=== PATIENT | female | born 1990 | race African-American/Black ===

== ENCOUNTER 2022-09-27 09:50 | Inpatient (IN) | payer MEDICAID ==
[~2022-09-27] VITALS: Ht 165.1 cm; Wt 90.7 kg
[2022-09-27] MEDS ORDERED: NALBUPHINE 10 MG/ML AMP IVP PRN (10:15)
[2022-09-27] MEDS ORDERED: METHYLERGONOVINE 0.2 MG/ML AMP IM PRN (10:15)
[2022-09-27] MEDS ORDERED: LACTATED RINGERS 500 ML IV SCH (10:15)
[2022-09-27] MEDS ORDERED: OXYTOCIN 10 UNITS/ML VIAL IM SCH (10:15)
[2022-09-27] MEDS ORDERED: CARBOPROST 250 MCG/ML AMP IM PRN (10:15)
[2022-09-27] MEDS ORDERED: PREN-543 PO (10:26)
[2022-09-27 10:38] LABS: APPEARANCE,URINE CLEAR (CLEAR); BILIRUBIN,URINE NEGATIVE (NEGATIVE); BLOOD, URINE TRACE-I (NEGATIVE); COLOR,URINE YELLOW (YELLOW); LEUKOCYTE ESTERASE ,URINE NEGATIVE (NEGATIVE); NITRITE, URINE NEGATIVE (NEGATIVE); PH,URINE 6.5 (5.0-9.0); PROTEIN,URINE TRACE (NEGATIVE); UGLUCOSE NEGATIVE (NEGATIVE); UROBILINOGEN,URINE 0.2 EU/dL (0.2 - 1)
[2022-09-27 10:41] LABS: BASOPHILS % (AUTO) 0.4 % (0.0-2.0); EOSINOPHILS # (AUTO) 0.1 K/uL (0-0.4); EOSINOPHILS % (AUTO) 2.8 % (0.0-4.0); HEMATOCRIT 30.7 % (36-48); HEMOGLOBIN 9.6 g/dL (12.0-16.0); LYMPHOCYTES # (AUTO) 1.1 K/uL (2.5-16.5); LYMPHOCYTES % (AUTO) 28.5 % (20.5-51.1); MEAN CORPUSCULAR HEMOGLOBIN 21 pg (27-31); MEAN CORPUSCULAR HGB CONC 31 g/dL (33-37); MONOCYTES # (AUTO) 0.3 K/uL (0.8-1.0); MONOCYTES % (AUTO) 8.5 % (1.7-9.3); NEUTROPHILS # (AUTO) 2.2 K/uL (1.8-7.7); NEUTROPHILS % (AUTO) 59.8 % (42.2-75.2); PLATELET COUNT (AUTO) 226 K/uL (140-450); RED BLOOD CELL COUNT(AUTO) 4.65 MIL/uL (4.20-5.40); WHITE BLOOD COUNT (AUTO) 3.8 K/uL (4.8-10.8)
[2022-09-27 10:50] LABS: ALBUMIN 2.4 g/dL (3.4-5.0); ANION GAP 12.8 (8-16); CALCIUM 8.1 mg/dL (8.5-10.1); CARBON DIOXIDE 24.6 mmol/L (21-32); CREATININE 0.6 mg/dL (0.6-1.3); INR 0.9 (0.8-1.2); PARTIAL THROMBOPLASTIN TIME 29.5 secs (22-35.6); POTASSIUM 3.4 mmol/L (3.5-5.1); PROTHROMBIN TIME 9.5 secs (10.8-13.4); TOTAL BILIRUBIN 0.2 mg/dL (0.0-1.0)
[2022-09-27] MEDS: LACTATED RINGERS 1,000 ML IV SCH ×2 (10:59→18:04)
[2022-09-27 11:29] VITALS: BP 126/70; PULSE 80; RESP 18; TEMP 98.7
[2022-09-27] MEDS ORDERED: MISOPROSTOL 25 MCG TAB VG SCH (12:00)
[2022-09-27] MEDS ORDERED: OXYTOCIN 20 UNITS in LACTATED RINGERS 1,000 ML IV SCH (16:50)
[2022-09-28] MEDS: LACTATED RINGERS 1,000 ML IV SCH ×2 (02:22→14:39)
[2022-09-28] MEDS ORDERED: OXYTOCIN 20 UNITS/LR PREMIX 1,000 ML IV ONE (07:36)
[2022-09-28] MEDS ORDERED: fentaNYL citrate 0.05 MG/ML VIAL ONE (10:19)
[2022-09-28] MEDS ORDERED: ROPIVACAINE 0.2%/NS PREMIX 200 ML EPI ONE (10:19)
[2022-09-28] MEDS ORDERED: TEMAZEPAM 15 MG CAP PO PRN (17:40)
[2022-09-28] MEDS ORDERED: BENZOCAINE/MENTHOL 20%-0.5% 60 GM CAN TP PRN (17:40)
[2022-09-28] MEDS ORDERED: IBUPROFEN 800 MG TAB PO PRN (17:40)
[2022-09-28] MEDS ORDERED: OXYTOCIN 10 UNITS/ML VIAL IM PRN (17:40)
[2022-09-28] MEDS ORDERED: METHYLERGONOVINE 0.2 MG TAB PO PRN (17:40)
[2022-09-28] MEDS ORDERED: METHYLERGONOVINE 0.2 MG/ML AMP IM PRN (17:40)
[2022-09-28] MEDS ORDERED: DOCUSATE SOD/SENNA 50/8.6 MG 1 TAB PO SCH (21:00)
[2022-09-28] MEDS: oxyCODONE/APAP 5/325 MG 1 TAB TAB PO PRN (21:25)
[2022-09-29] MEDS: oxyCODONE/APAP 5/325 MG 1 TAB TAB PO PRN ×4 (04:21→19:37)
[2022-09-29] MEDS ORDERED: DOCUSATE SOD/SENNA 50/8.6 MG 1 TAB PO SCH (07:25)
[2022-09-29 08:37] LABS: HEMATOCRIT 31.8 % (36-48); HEMOGLOBIN 9.9 g/dL (12.0-16.0)
== END 2022-09-29 21:28 | disposition home or self-care (01) | DRG 560 ==
LOC: MLD 09:50 → OBSVTOIN 14:50 → MFCC 09-28 20:00
PROVIDERS: ADMIT Obstetrics & Gynecology; ATTEND Obstetrics & Gynecology
PROC: 10D07Z6 Extraction of Products of Conception, Vacuum, Via Natural or Artificial Opening (ICD-10-PCS; principal; 2022-09-28)
PROC: 3E0R3BZ Introduction of Anesthetic Agent into Spinal Canal, Percutaneous Approach (ICD-10-PCS; 2022-09-28)
PROC: 00HU33Z Insertion of Infusion Device into Spinal Canal, Percutaneous Approach (ICD-10-PCS; 2022-09-28)
PROC: 10907ZC Drainage of Amniotic Fluid, Therapeutic from Products of Conception, Via Natural or Artificial Opening (ICD-10-PCS; 2022-09-28)
PROC: 3E0P7VZ Introduction of Hormone into Female Reproductive, Via Natural or Artificial Opening (ICD-10-PCS; 2022-09-28)
DX: O48.0 Post-term pregnancy (principal); Z37.0 Single live birth; O24.429 Gestational diabetes mellitus in childbirth, unspecified control; O36.8130 Decreased fetal movements, third trimester, not applicable or unspecified; Z20.822 Contact with and (suspected) exposure to COVID-19; Z3A.40 40 weeks gestation of pregnancy
CPT/HCPCS: 36415; 80053; 81003; 85018; 85025; 85610; 85730; 86592; 86886; 86900; 86901; J2590; J2795; J3010

== ENCOUNTER 2023-06-04 20:33 | Emergency (ER) | payer MEDICAID ==
[~2023-06-04] VITALS: Ht 165.1 cm; Wt 71.2 kg
[~2023-06-04 20:33] MED LIST: PREN-543 PO
[2023-06-04 20:58] VITALS: BP 126/86; PULSE 88; RESP 18; TEMP 97.8; O2SAT 100
[2023-06-04 21:40] VITALS: BP 126/86; PULSE 88; RESP 18; TEMP 97.8; O2SAT 100
[2023-06-04] MEDS ORDERED: CEPH-588 PO (21:49)
[2023-06-04] MEDS: BACITRACIN OINT 500 UNITS/GM PKT TP ONE (21:57)
== END 2023-06-04 21:58 | disposition home or self-care (01) ==
LOC: MED 20:33
DX: L03.114 Cellulitis of left upper limb (principal); L73.9 Follicular disorder, unspecified; Z79.899 Other long term (current) drug therapy
CPT/HCPCS: 99283

== ENCOUNTER 2023-06-07 20:15 | Emergency (ER) | payer MEDICAID ==
[~2023-06-07] VITALS: Ht 165.1 cm; Wt 71.7 kg
[~2023-06-07 20:15] MED LIST changes: +CEPH-588 PO
[2023-06-07 20:36] VITALS: BP 145/95; PULSE 78; RESP 18; TEMP 97; O2SAT 99
[2023-06-07 22:36] LABS: APPEARANCE,URINE CLEAR (CLEAR); BILIRUBIN,URINE NEGATIVE (NEGATIVE); BLOOD, URINE TRACE-I (NEGATIVE); COLOR,URINE YELLOW (YELLOW); LEUKOCYTE ESTERASE ,URINE NEGATIVE (NEGATIVE); NITRITE, URINE NEGATIVE (NEGATIVE); PROTEIN,URINE NEGATIVE (NEGATIVE); UGLUCOSE NEGATIVE (NEGATIVE); UROBILINOGEN,URINE 0.2 EU/dL (0.2 - 1)
[2023-06-07 22:44] LABS: BACTERIA,URINE FEW /HPF (None Seen); MUCUS,URINE 1+ /LPF (None Seen); RBC,URINE 0-5 /HPF (0-5); SQUAMOUS EPITHELIAL CELL,UR 0-3 (FEW) /LPF (0-3 (FEW)); WBC,URINE 0-5 /HPF (0-5)
[2023-06-08 00:06] LABS: BASOPHILS % (AUTO) 0.6 % (0.0-2.0); EOSINOPHILS # (AUTO) 0.2 K/uL (0-0.4); EOSINOPHILS % (AUTO) 3.1 % (0.0-4.0); HEMATOCRIT 35.8 % (36-48); HEMOGLOBIN 11.4 g/dL (12.0-16.0); LYMPHOCYTES # (AUTO) 2.3 K/uL (2.5-16.5); LYMPHOCYTES % (AUTO) 41.2 % (20.5-51.1); MEAN CORPUSCULAR HEMOGLOBIN 22 pg (27-31); MEAN CORPUSCULAR HGB CONC 32 g/dL (33-37); MEAN CORPUSCULAR VOLUME 67.4 fL (80-94); MONOCYTES # (AUTO) 0.4 K/uL (0.8-1.0); NEUTROPHILS # (AUTO) 2.7 K/uL (1.8-7.7); NEUTROPHILS % (AUTO) 48.1 % (42.2-75.2); PLATELET COUNT (AUTO) 317 K/uL (140-450); RED BLOOD CELL COUNT(AUTO) 5.31 MIL/uL (4.20-5.40); RED CELL DISTRIBUTION WIDTH 14.8 % (11.6-13.7); WHITE BLOOD COUNT (AUTO) 5.6 K/uL (4.8-10.8)
[2023-06-08] MEDS: PHENAZOPYRIDINE 100 MG TAB PO ONE (00:08)
[2023-06-08 00:16] LABS: ANION GAP 13.7 (8-16); CALCIUM 9.5 mg/dL (8.5-10.1); CARBON DIOXIDE 25.8 mmol/L (21-32); CREATININE 0.7 mg/dL (0.6-1.3); POTASSIUM 3.5 mmol/L (3.5-5.1)
[2023-06-08 02:06] VITALS: O2SAT 99
[2023-06-08 02:09] VITALS: BP 130/84; PULSE 75; RESP 16; O2SAT 99
[2023-06-08] MEDS: HYDROcodone/APAP 5/325 MG 1 TAB TAB PO ONE (03:54)
[2023-06-08] MEDS ORDERED: NAPR-337 PO (04:05)
[2023-06-08] MEDS ORDERED: PYR100 PO (04:05)
== END 2023-06-08 04:09 | disposition home or self-care (01) ==
LOC: MED 20:15
DX: R30.0 Dysuria (principal); R10.30 Lower abdominal pain, unspecified; Z79.899 Other long term (current) drug therapy
CPT/HCPCS: 36415; 80048; 81001; 81025; 85025; 87491; 99284

== ENCOUNTER 2023-06-10 17:07 | Emergency (ER) | payer MEDICAID ==
[~2023-06-10] VITALS: Ht 165.1 cm; Wt 71.2 kg
[~2023-06-10 17:07] MED LIST changes: +NAPR-337 PO; +PYR100 PO
[2023-06-10 17:39] VITALS: BP 132/91; PULSE 88; RESP 18; TEMP 98.4; O2SAT 100
[2023-06-10] MEDS ORDERED: KETOROLAC 30 MG/ML VIAL ONE (18:19)
[2023-06-10] MEDS: ACETAMINOPHEN 325 MG TAB PO ONE (18:25)
[2023-06-10] MEDS: KETOROLAC 30 MG/ML VIAL IM ONE (18:29)
[2023-06-10 18:38] LABS: BASOPHILS # (AUTO) 0.1 K/uL (0.00-0.22); EOSINOPHILS # (AUTO) 0.3 K/uL (0-0.4); EOSINOPHILS % (AUTO) 4.4 % (0.0-4.0); HEMATOCRIT 36.6 % (36-48); HEMOGLOBIN 11.8 g/dL (12.0-16.0); LYMPHOCYTES # (AUTO) 2.4 K/uL (2.5-16.5); LYMPHOCYTES % (AUTO) 37.1 % (20.5-51.1); MEAN CORPUSCULAR HEMOGLOBIN 22 pg (27-31); MEAN CORPUSCULAR HGB CONC 32 g/dL (33-37); MEAN CORPUSCULAR VOLUME 67.5 fL (80-94); MONOCYTES # (AUTO) 0.5 K/uL (0.8-1.0); MONOCYTES % (AUTO) 7.8 % (1.7-9.3); NEUTROPHILS # (AUTO) 3.3 K/uL (1.8-7.7); NEUTROPHILS % (AUTO) 49.7 % (42.2-75.2); PLATELET COUNT (AUTO) 346 K/uL (140-450); RED BLOOD CELL COUNT(AUTO) 5.42 MIL/uL (4.20-5.40); WHITE BLOOD COUNT (AUTO) 6.6 K/uL (4.8-10.8)
[2023-06-10 18:52] LABS: APPEARANCE,URINE CLEAR (CLEAR); BILIRUBIN,URINE NEGATIVE (NEGATIVE); BLOOD, URINE TRACE-I (NEGATIVE); COLOR,URINE YELLOW (YELLOW); LEUKOCYTE ESTERASE ,URINE NEGATIVE (NEGATIVE); NITRITE, URINE NEGATIVE (NEGATIVE); PH,URINE 6.5 (5.0-9.0); PROTEIN,URINE NEGATIVE (NEGATIVE); UGLUCOSE NEGATIVE (NEGATIVE); UROBILINOGEN,URINE 0.2 EU/dL (0.2 - 1)
[2023-06-10 18:53] LABS: ANION GAP 11.8 (8-16); CALCIUM 9.3 mg/dL (8.5-10.1); CARBON DIOXIDE 28.9 mmol/L (21-32); CREATININE 0.8 mg/dL (0.6-1.3); POTASSIUM 3.7 mmol/L (3.5-5.1)
[2023-06-10 19:02] LABS: ALANINE AMINOTRANSFERASE 14 U/L (12-78); ALBUMIN 3.9 g/dL (3.4-5.0); ALKALINE PHOSPHATASE 65 U/L (50-136); ASPARTATE AMINOTRANSFERASE 14 U/L (15-37); BILIRUBIN,DIRECT 0.1 mg/dL (0.0-0.3); TOTAL BILIRUBIN 0.4 mg/dL (0.0-1.0); TOTAL PROTEIN, SERUM 7.1 g/dL (6.4-8.2)
[2023-06-10] MEDS ORDERED: METR70GE VG (19:50)
[2023-06-10 20:01] VITALS: BP 126/85; PULSE 90; RESP 16; TEMP 98.6; O2SAT 100
== END 2023-06-10 20:01 | disposition home or self-care (01) ==
LOC: MED 17:07
DX: N76.0 Acute vaginitis (principal); B96.89 Other specified bacterial agents as the cause of diseases classified elsewhere; R07.9 Chest pain, unspecified; Z79.899 Other long term (current) drug therapy
CPT/HCPCS: 36415; 71045; 80048; 80076; 81003; 81025; 84484; 85025; 87210; 93005; 96372; 99285; J1885; Q0092

== ENCOUNTER 2023-06-18 12:03 | Emergency (ER) | payer MEDICAID ==
[~2023-06-18] VITALS: Ht 165.1 cm; Wt 71.2 kg
[~2023-06-18 12:03] MED LIST changes: +METR0.7510 VG
[2023-06-18 12:13] VITALS: BP 118/73; PULSE 85; RESP 18; TEMP 98.3; O2SAT 100
[2023-06-18 13:11] LABS: APPEARANCE,URINE CLEAR (CLEAR); BILIRUBIN,URINE NEGATIVE (NEGATIVE); BLOOD, URINE TRACE-I (NEGATIVE); COLOR,URINE YELLOW (YELLOW); LEUKOCYTE ESTERASE ,URINE NEGATIVE (NEGATIVE); NITRITE, URINE NEGATIVE (NEGATIVE); PH,URINE 6.5 (5.0-9.0); PROTEIN,URINE NEGATIVE (NEGATIVE); UGLUCOSE NEGATIVE (NEGATIVE); UROBILINOGEN,URINE 0.2 EU/dL (0.2 - 1)
[2023-06-18 14:42] LABS: EOSINOPHILS # (AUTO) 0.2 K/uL (0-0.4); HEMATOCRIT 37.5 % (36-48); LYMPHOCYTES # (AUTO) 1.9 K/uL (2.5-16.5); LYMPHOCYTES % (AUTO) 40.5 % (20.5-51.1); MEAN CORPUSCULAR HEMOGLOBIN 22 pg (27-31); MEAN CORPUSCULAR HGB CONC 32 g/dL (33-37); MEAN CORPUSCULAR VOLUME 67.7 fL (80-94); MONOCYTES # (AUTO) 0.3 K/uL (0.8-1.0); NEUTROPHILS # (AUTO) 2.2 K/uL (1.8-7.7); NEUTROPHILS % (AUTO) 46.5 % (42.2-75.2); PLATELET COUNT (AUTO) 341 K/uL (140-450); RED BLOOD CELL COUNT(AUTO) 5.54 MIL/uL (4.20-5.40); WHITE BLOOD COUNT (AUTO) 4.8 K/uL (4.8-10.8)
[2023-06-18 14:56] LABS: ANION GAP 12.1 (8-16); CALCIUM 9.2 mg/dL (8.5-10.1); CARBON DIOXIDE 27.7 mmol/L (21-32); CREATININE 0.7 mg/dL (0.6-1.3); POTASSIUM 3.8 mmol/L (3.5-5.1)
[2023-06-18] MEDS: ONDANSETRON 4 MG ODT PO ONE (15:13)
[2023-06-18] MEDS: FAMOTIDINE 20 MG TAB PO ONE (15:16)
[2023-06-18] MEDS: KETOROLAC 30 MG/ML VIAL IM ONE (15:16)
[2023-06-18 15:22] LABS: ALBUMIN 4.1 g/dL (3.4-5.0); BILIRUBIN,DIRECT 0.1 mg/dL (0.0-0.3); TOTAL BILIRUBIN 0.5 mg/dL (0.0-1.0); TOTAL PROTEIN, SERUM 7.4 g/dL (6.4-8.2)
[2023-06-18 15:31] LABS: FLU A ANTIGEN negative (NEGATIVE); FLU B ANTIGEN NEGATIVE (NEGATIVE)
[2023-06-18] MEDS ORDERED: FAMO-90 PO (15:36)
[2023-06-18] MEDS ORDERED: ONDA-188 SL (15:36)
== END 2023-06-18 15:41 | disposition home or self-care (01) ==
LOC: MED 12:03
DX: A08.4 Viral intestinal infection, unspecified (principal); Z20.822 Contact with and (suspected) exposure to COVID-19; Z79.899 Other long term (current) drug therapy
CPT/HCPCS: 36415; 80048; 80076; 81003; 81025; 83690; 85025; 87426; 87804; 96372; 99283; J1885; Q0162